=== PATIENT | male | born 1950 | race Caucasian/White ===

== ENCOUNTER 2023-03-29 10:12 | Inpatient (IN) ==
[2023-03-29] MEDS ORDERED: 0.9 % SODIUM CHLORIDE 1,000 ML IV ONE (10:18)
[2023-03-29 10:56] LABS: POC Calcium, Ionized 1.06 (1.16-1.32); POC Creatinine 0.8 (0.6-1.2); POC Potassium 3.9 (3.3-5.1)
[2023-03-29 11:42] LABS: ALT/SGPT 22 U/L (<40); AST/SGOT 36 U/L (<40); Albumin 4.2 gm/dL (3.2-5.2); Alkaline Phosphatase 69 U/L (39-117); Bilirubin,Direct < 0.2 mg/dL (0-0.3); Bilirubin,Total 0.3 mg/dL (0.1-1.0); Globulin 2.7 gm/dL (2.2-3.7)
[2023-03-29 12:04] LABS: Basophils # (Auto) 0.03 K/mcL (0.00-0.30); Basophils % (Auto) 0.6 % (0.0-2.0); Eosinophils # (Auto) 0.02 K/mcL (0.00-0.70); Eosinophils % (Auto) 0.4 % (0.0-7.0); Hematocrit 41.6 % (40.1-51.0); Hemoglobin 14.6 g/dL (13.7-17.5); Lymphocytes # (Auto) 1.01 K/mcL (1.50-4.80); Lymphocytes % (Auto) 21.5 % (15.5-49.0); Mean Cell Volume 96.3 fL (80.0-100.0); Mean Corpuscular HGB Conc 35.1 g/dL (31.0-36.0); Mean Platelet Volume 9.2 fL (8.8-12.5); Neutrophils % (Auto) 60.3 % (38.0-78.0); Platelet Count 146 K/mcL (140-440); RBC 4.32 M/mcL (4.63-6.08); Red Cell Distribution Width 12.4 % (11.5-14.5); WBC 4.7 K/mcL (4.5-11.0)
[2023-03-29] MEDS ORDERED: morphine 4 MG/ML VIAL IV PRN (13:19)
[2023-03-29] MEDS ORDERED: ONDANSETRON 4 MG/2 ML VIAL IV PRN ×2 (13:19→14:54)
[2023-03-29 13:52] LABS: Appearance,Urine CLEAR (Clear); Bilirubin,Urine Negative (Negative); Color,Urine YELLOW; Culture Indicated,Urine No; Glucose,Urine (UA) Negative (Negative); Ketones,Urine 20 mg/dL (Negative); Leukocyte Esterase,Urine Negative /uL (Negative); Mucus,Urine FEW /hpf; Nitrate,Urine Negative (Negative); Protein,Urine 100 mg/dL (Negative); Specific Gravity,Urine 1.012 (1.000-1.035); Urine Blood 0.03 mg/dL (Negative); Urine RBC 13 /hpf (0-3); Urine Squamous Epithelial Cell 0 /hpf (0-4); Urine WBC 1 /hpf (0-4); Urobilinogen,Urine Negative
[2023-03-29] MEDS ORDERED: ACETAMINOPHEN 325 MG TABLET PO PRN (14:54)
[2023-03-29] MEDS ORDERED: BISACODYL 10 MG SUPP.RECT PR PRN (14:54)
[2023-03-29] MEDS ORDERED: MAGNESIUM HYDROXIDE 30 ML ORAL.SUSP PO PRN (14:54)
[2023-03-29] MEDS: 0.9 % SODIUM CHLORIDE 10 ML SYRINGE IV SCH ×2 (14:57→20:45)
[2023-03-29] MEDS: DEXTROSE 5%-LR 1,000 ML IV SCH (18:11)
[2023-03-29] MEDS: HYDROmorphone 0.5 MG/0.5 ML SYRINGE IV PRN (18:13)
[2023-03-29] MEDS: DOCUSATE SODIUM 100 MG CAPSULE PO SCH (20:17)
[2023-03-29] MEDS: SENNOSIDES 1 TABLET PO SCH (20:17)
[2023-03-29] MEDS: traZODone HCL 50 MG TABLET PO PRN (20:18)
[2023-03-29] MEDS: oxyCODONE IR 5 MG TABLET PO PRN (20:19)
[2023-03-29] MEDS: FAMOTIDINE/PF 20 MG/2 ML VIAL IV SCH (20:42)
[2023-03-30] MEDS: DEXTROSE 5%-LR 1,000 ML IV SCH ×2 (02:40→10:28)
[2023-03-30] MEDS: 0.9 % SODIUM CHLORIDE 10 ML SYRINGE IV SCH ×3 (04:06→23:21)
[2023-03-30] MEDS ORDERED: SCOPOLAMINE 1 PATCH PATCH TOPICAL PRN (05:00)
[2023-03-30] MEDS ORDERED: IPRATROPIUM/ALBUTEROL 3 ML AMPUL.NEB NEB PRN ×2 (05:00→13:27)
[2023-03-30 07:52] LABS: Basophils # (Auto) 0.03 K/mcL (0.00-0.30); Basophils % (Auto) 0.7 % (0.0-2.0); Eosinophils # (Auto) 0.17 K/mcL (0.00-0.70); Hemoglobin 13.6 g/dL (13.7-17.5); Lymphocytes # (Auto) 1.06 K/mcL (1.50-4.80); Lymphocytes % (Auto) 25.2 % (15.5-49.0); Mean Cell Volume 98.3 fL (80.0-100.0); Mean Platelet Volume 9.5 fL (8.8-12.5); Monocytes # (Auto) 0.54 K/mcL (0.10-0.90); Monocytes % (Auto) 12.8 % (1.0-12.0); Neutrophils % (Auto) 57.1 % (38.0-78.0); Platelet Count 124 K/mcL (140-440); RBC 4.07 M/mcL (4.63-6.08); Red Cell Distribution Width 12.5 % (11.5-14.5); WBC 4.2 K/mcL (4.5-11.0)
[2023-03-30 08:01] LABS: ALT/SGPT 18 U/L (<40); AST/SGOT 26 U/L (<40); Albumin 3.7 gm/dL (3.2-5.2); Albumin/Globulin Ratio 1.5 (1.0-2.3); Alkaline Phosphatase 55 U/L (39-117); Bilirubin,Total 0.3 mg/dL (0.1-1.0); Blood Urea Nitrogen 8 mg/dL (8-23); Calcium 8.6 mg/dL (8.6-10.4); Carbon Dioxide 24 mmol/L (22-30); Chloride 98 mmol/L (96-108); Globulin 2.4 gm/dL (2.2-3.7); Glomerular Filtration Rate 93; Glucose 111 mg/dL (70-105)
[2023-03-30] MEDS: FAMOTIDINE/PF 20 MG/2 ML VIAL IV SCH ×2 (08:41→21:32)
[2023-03-30] MEDS: DOCUSATE SODIUM 100 MG CAPSULE PO SCH ×2 (08:41→23:21)
[2023-03-30] MEDS ORDERED: fentaNYL 100 MCG/2 ML VIAL IV ONE (12:02)
[2023-03-30] MEDS ORDERED: PROPOFOL 200 MG/20 ML VIAL IV ONE ×2 (12:02→13:40)
[2023-03-30] MEDS ORDERED: ROCURONIUM 10 MG/ML ML IV ONE (12:02)
[2023-03-30] MEDS ORDERED: ONDANSETRON 4 MG/2 ML VIAL ONE (12:04)
[2023-03-30] MEDS ORDERED: VANCOMYCIN 1,000 MG in 0.9 % SODIUM CHLORIDE 250 ML IV SCH (13:00)
[2023-03-30] MEDS ORDERED: HYDROmorphone 0.5 MG/0.5 ML SYRINGE IV PRN (13:27)
[2023-03-30] MEDS ORDERED: fentaNYL 100 MCG/2 ML VIAL IV PRN (13:27)
[2023-03-30] MEDS ORDERED: LABETALOL 5 MG/ML ML IV PRN (13:27)
[2023-03-30] MEDS ORDERED: SUGAMMADEX SODIUM 200 MG/2 ML VIAL IV ONE (13:37)
[2023-03-30] MEDS ORDERED: BENZOCAINE/MENTHOL 1 LOZENGE PO PRN (13:45)
[2023-03-30] MEDS ORDERED: morphine 4 MG/ML VIAL IV PRN (13:45)
[2023-03-30] MEDS ORDERED: HYDROcodone/APAP 5/325MG TABLET PO PRN (13:45)
[2023-03-30] MEDS ORDERED: BISACODYL 10 MG SUPP.RECT PR PRN (13:45)
[2023-03-30] MEDS ORDERED: POLYETHYLENE GLYCOL 3350 17 GM PACKET PO PRN (13:45)
[2023-03-30] MEDS ORDERED: ONDANSETRON 4 MG ODT TABLET SL PRN (13:45)
[2023-03-30] MEDS ORDERED: FLEETS ADULT ENEMA PR PRN (13:45)
[2023-03-30] MEDS ORDERED: MAGNESIUM HYDROXIDE 30 ML ORAL.SUSP PO PRN (13:45)
[2023-03-30] MEDS: HYDROmorphone 0.5 MG/0.5 ML SYRINGE IV PRN (15:10)
[2023-03-30] MEDS ORDERED: SENNOSIDES 1 TABLET PO SCH (21:00)
[2023-03-30] MEDS ORDERED: ASPIRIN 325 MG ENTERIC COATED TABLET PO SCH (21:00)
[2023-03-30] MEDS ORDERED: DOCUSATE SODIUM 100 MG CAPSULE PO SCH (21:00)
[2023-03-30] MEDS: OXYBUTYNIN CHLORIDE 5 MG TABLET PO SCH (21:31)
[2023-03-30] MEDS: SENNOSIDES 1 TABLET PO SCH (23:21)
[2023-03-31] MEDS: oxyCODONE IR 5 MG TABLET PO PRN ×2 (00:40→21:03)
[2023-03-31] MEDS: DEXTROSE 5%-LR 1,000 ML IV SCH ×2 (00:41→13:07)
[2023-03-31] MEDS: 0.9 % SODIUM CHLORIDE 10 ML SYRINGE IV SCH ×3 (05:59→20:42)
[2023-03-31 06:48] LABS: Basophils # (Auto) 0.03 K/mcL (0.00-0.30); Basophils % (Auto) 0.7 % (0.0-2.0); Eosinophils # (Auto) 0.11 K/mcL (0.00-0.70); Eosinophils % (Auto) 2.4 % (0.0-7.0); Hematocrit 36.8 % (40.1-51.0); Hemoglobin 12.6 g/dL (13.7-17.5); Lymphocytes # (Auto) 1.21 K/mcL (1.50-4.80); Lymphocytes % (Auto) 26.5 % (15.5-49.0); Mean Cell Volume 98.1 fL (80.0-100.0); Mean Corpuscular HGB Conc 34.2 g/dL (31.0-36.0); Mean Platelet Volume 9.7 fL (8.8-12.5); Monocytes # (Auto) 0.49 K/mcL (0.10-0.90); Monocytes % (Auto) 10.7 % (1.0-12.0); Neutrophils % (Auto) 59.5 % (38.0-78.0); Platelet Count 118 K/mcL (140-440); RBC 3.75 M/mcL (4.63-6.08); Red Cell Distribution Width 12.5 % (11.5-14.5); WBC 4.6 K/mcL (4.5-11.0)
[2023-03-31 07:13] LABS: ALT/SGPT 15 U/L (<40); AST/SGOT 26 U/L (<40); Albumin 2.9 gm/dL (3.2-5.2); Albumin/Globulin Ratio 1.1 (1.0-2.3); Alkaline Phosphatase 52 U/L (39-117); Bilirubin,Total 0.2 mg/dL (0.1-1.0); Blood Urea Nitrogen 7 mg/dL (8-23); Calcium 8.1 mg/dL (8.6-10.4); Carbon Dioxide 23 mmol/L (22-30); Chloride 101 mmol/L (96-108); Globulin 2.6 gm/dL (2.2-3.7); Glomerular Filtration Rate 99; Glucose 123 mg/dL (70-105)
[2023-03-31] MEDS: DONEPEZIL 10 MG TABLET PO SCH (08:29)
[2023-03-31] MEDS: OXYBUTYNIN CHLORIDE 5 MG TABLET PO SCH ×2 (08:29→21:04)
[2023-03-31] MEDS: FAMOTIDINE/PF 20 MG/2 ML VIAL IV SCH ×2 (08:29→21:07)
[2023-03-31] MEDS: DOCUSATE SODIUM 100 MG CAPSULE PO SCH ×2 (08:29→20:42)
[2023-03-31] MEDS ORDERED: POTASSIUM CHLORIDE 20 MEQ TABLET PO ONE (10:08)
[2023-03-31] MEDS: ENOXAPARIN 40 MG/0.4 ML SYRINGE SQ SCH (17:28)
[2023-03-31] MEDS: POTASSIUM CHLORIDE 20 MEQ TABLET PO SCH (17:28)
[2023-03-31] MEDS: METHOCARBAMOL 750 MG TABLET PO PRN (17:45)
[2023-03-31] MEDS: SENNOSIDES 1 TABLET PO SCH (20:42)
[2023-03-31] MEDS: traZODone HCL 50 MG TABLET PO PRN (21:04)
[2023-04-01] MEDS: 0.9 % SODIUM CHLORIDE 10 ML SYRINGE IV SCH ×3 (04:52→20:20)
[2023-04-01] MEDS: DEXTROSE 5%-LR 1,000 ML IV SCH (04:54)
[2023-04-01] MEDS: DONEPEZIL 10 MG TABLET PO SCH (08:34)
[2023-04-01] MEDS: oxyCODONE IR 5 MG TABLET PO PRN ×2 (08:34→17:47)
[2023-04-01] MEDS: METHOCARBAMOL 750 MG TABLET PO PRN ×2 (08:34→17:47)
[2023-04-01] MEDS: OXYBUTYNIN CHLORIDE 5 MG TABLET PO SCH ×2 (08:35→20:20)
[2023-04-01] MEDS: DOCUSATE SODIUM 100 MG CAPSULE PO SCH ×2 (08:35→20:20)
[2023-04-01] MEDS: POTASSIUM CHLORIDE 20 MEQ TABLET PO SCH ×2 (08:36→17:47)
[2023-04-01] MEDS: ENOXAPARIN 40 MG/0.4 ML SYRINGE SQ SCH (08:36)
[2023-04-01 09:36] LABS: Basophils # (Auto) 0.02 K/mcL (0.00-0.30); Basophils % (Auto) 0.5 % (0.0-2.0); Eosinophils # (Auto) 0.15 K/mcL (0.00-0.70); Eosinophils % (Auto) 3.5 % (0.0-7.0); Hematocrit 37.8 % (40.1-51.0); Hemoglobin 12.1 g/dL (13.7-17.5); Lymphocytes # (Auto) 1.46 K/mcL (1.50-4.80); Mean Cell Volume 105.3 fL (80.0-100.0); Mean Platelet Volume 9.5 fL (8.8-12.5); Monocytes # (Auto) 0.45 K/mcL (0.10-0.90); Monocytes % (Auto) 10.5 % (1.0-12.0); Neutrophils % (Auto) 51.3 % (38.0-78.0); Platelet Count 119 K/mcL (140-440); RBC 3.59 M/mcL (4.63-6.08); Red Cell Distribution Width 12.5 % (11.5-14.5); WBC 4.3 K/mcL (4.5-11.0)
[2023-04-01 10:11] LABS: ALT/SGPT 13 U/L (<40); AST/SGOT 23 U/L (<40); Albumin/Globulin Ratio 1.3 (1.0-2.3); Alkaline Phosphatase 51 U/L (39-117); Bilirubin,Total 0.3 mg/dL (0.1-1.0); Blood Urea Nitrogen 6 mg/dL (8-23); Calcium 8.3 mg/dL (8.6-10.4); Carbon Dioxide 26 mmol/L (22-30); Chloride 101 mmol/L (96-108); Globulin 2.4 gm/dL (2.2-3.7); Glomerular Filtration Rate 99; Glucose 98 mg/dL (70-105)
[2023-04-01] MEDS: FAMOTIDINE/PF 20 MG/2 ML VIAL IV SCH (10:27)
[2023-04-01] MEDS: SENNOSIDES 1 TABLET PO SCH (20:20)
[2023-04-01] MEDS: FAMOTIDINE 20 MG TABLET PO SCH (20:20)
[2023-04-01] MEDS: traZODone HCL 50 MG TABLET PO PRN (20:20)
[2023-04-02] MEDS: METHOCARBAMOL 750 MG TABLET PO PRN ×3 (02:55→21:53)
[2023-04-02] MEDS: oxyCODONE IR 5 MG TABLET PO PRN ×3 (02:55→21:55)
[2023-04-02] MEDS: 0.9 % SODIUM CHLORIDE 10 ML SYRINGE IV SCH ×3 (05:59→21:54)
[2023-04-02 07:02] LABS: Basophils # (Auto) 0.03 K/mcL (0.00-0.30); Basophils % (Auto) 0.6 % (0.0-2.0); Eosinophils # (Auto) 0.14 K/mcL (0.00-0.70); Eosinophils % (Auto) 2.8 % (0.0-7.0); Hemoglobin 11.9 g/dL (13.7-17.5); Lymphocytes # (Auto) 1.18 K/mcL (1.50-4.80); Lymphocytes % (Auto) 23.7 % (15.5-49.0); Mean Cell Volume 98.6 fL (80.0-100.0); Mean Platelet Volume 9.6 fL (8.8-12.5); Monocytes # (Auto) 0.51 K/mcL (0.10-0.90); Monocytes % (Auto) 10.2 % (1.0-12.0); Neutrophils % (Auto) 62.5 % (38.0-78.0); Platelet Count 145 K/mcL (140-440); RBC 3.55 M/mcL (4.63-6.08); Red Cell Distribution Width 12.1 % (11.5-14.5)
[2023-04-02 07:37] LABS: ALT/SGPT 13 U/L (<40); AST/SGOT 22 U/L (<40); Albumin 3.3 gm/dL (3.2-5.2); Albumin/Globulin Ratio 1.4 (1.0-2.3); Alkaline Phosphatase 54 U/L (39-117); Bilirubin,Total 0.4 mg/dL (0.1-1.0); Blood Urea Nitrogen 8 mg/dL (8-23); Calcium 8.4 mg/dL (8.6-10.4); Carbon Dioxide 23 mmol/L (22-30); Chloride 98 mmol/L (96-108); Globulin 2.4 gm/dL (2.2-3.7); Glomerular Filtration Rate 99; Glucose 96 mg/dL (70-105)
[2023-04-02] MEDS: POTASSIUM CHLORIDE 20 MEQ TABLET PO SCH ×2 (07:54→18:02)
[2023-04-02] MEDS: DONEPEZIL 10 MG TABLET PO SCH (08:53)
[2023-04-02] MEDS: DOCUSATE SODIUM 100 MG CAPSULE PO SCH ×2 (08:53→21:53)
[2023-04-02] MEDS: ENOXAPARIN 40 MG/0.4 ML SYRINGE SQ SCH (08:54)
[2023-04-02] MEDS: OXYBUTYNIN CHLORIDE 5 MG TABLET PO SCH ×2 (08:54→21:54)
[2023-04-02] MEDS: FAMOTIDINE 20 MG TABLET PO SCH ×2 (08:54→21:54)
[2023-04-02] MEDS: SENNOSIDES 1 TABLET PO SCH (21:54)
[2023-04-02] MEDS: traZODone HCL 50 MG TABLET PO PRN (21:54)
[2023-04-03] MEDS: oxyCODONE IR 5 MG TABLET PO PRN ×2 (03:54→20:16)
[2023-04-03] MEDS: METHOCARBAMOL 750 MG TABLET PO PRN ×2 (03:55→20:15)
[2023-04-03] MEDS: 0.9 % SODIUM CHLORIDE 10 ML SYRINGE IV SCH ×3 (04:00→20:15)
[2023-04-03 07:45] LABS: Basophils # (Auto) 0.03 K/mcL (0.00-0.30); Basophils % (Auto) 0.6 % (0.0-2.0); Eosinophils # (Auto) 0.17 K/mcL (0.00-0.70); Eosinophils % (Auto) 3.1 % (0.0-7.0); Hematocrit 34.5 % (40.1-51.0); Hemoglobin 11.7 g/dL (13.7-17.5); Lymphocytes # (Auto) 1.41 K/mcL (1.50-4.80); Lymphocytes % (Auto) 26.1 % (15.5-49.0); Mean Cell Volume 96.9 fL (80.0-100.0); Mean Corpuscular HGB Conc 33.9 g/dL (31.0-36.0); Mean Platelet Volume 9.4 fL (8.8-12.5); Monocytes # (Auto) 0.66 K/mcL (0.10-0.90); Monocytes % (Auto) 12.2 % (1.0-12.0); Neutrophils % (Auto) 57.6 % (38.0-78.0); Platelet Count 170 K/mcL (140-440); RBC 3.56 M/mcL (4.63-6.08); Red Cell Distribution Width 12.1 % (11.5-14.5); WBC 5.4 K/mcL (4.5-11.0)
[2023-04-03 08:30] LABS: ALT/SGPT 14 U/L (<40); AST/SGOT 20 U/L (<40); Albumin 3.4 gm/dL (3.2-5.2); Albumin/Globulin Ratio 1.4 (1.0-2.3); Alkaline Phosphatase 58 U/L (39-117); Bilirubin,Total 0.4 mg/dL (0.1-1.0); Blood Urea Nitrogen 11 mg/dL (8-23); Calcium 8.8 mg/dL (8.6-10.4); Carbon Dioxide 24 mmol/L (22-30); Chloride 99 mmol/L (96-108); Globulin 2.5 gm/dL (2.2-3.7); Glomerular Filtration Rate 88; Glucose 89 mg/dL (70-105)
[2023-04-03] MEDS: ENOXAPARIN 40 MG/0.4 ML SYRINGE SQ SCH (08:42)
[2023-04-03] MEDS: DOCUSATE SODIUM 100 MG CAPSULE PO SCH ×2 (08:42→20:09)
[2023-04-03] MEDS: DONEPEZIL 10 MG TABLET PO SCH (08:42)
[2023-04-03] MEDS: FAMOTIDINE 20 MG TABLET PO SCH ×2 (08:42→20:15)
[2023-04-03] MEDS: POTASSIUM CHLORIDE 20 MEQ TABLET PO SCH ×2 (08:42→16:56)
[2023-04-03] MEDS: OXYBUTYNIN CHLORIDE 5 MG TABLET PO SCH ×2 (08:42→20:15)
[2023-04-03] MEDS: SENNOSIDES 1 TABLET PO SCH (20:09)
[2023-04-03] MEDS: traZODone HCL 50 MG TABLET PO PRN (20:15)
[2023-04-04] MEDS: METHOCARBAMOL 750 MG TABLET PO PRN ×2 (02:32→08:38)
[2023-04-04] MEDS: oxyCODONE IR 5 MG TABLET PO PRN ×2 (02:32→08:38)
[2023-04-04] MEDS: 0.9 % SODIUM CHLORIDE 10 ML SYRINGE IV SCH (05:02)
[2023-04-04 07:41] LABS: Basophils # (Auto) 0.03 K/mcL (0.00-0.30); Basophils % (Auto) 0.5 % (0.0-2.0); Eosinophils # (Auto) 0.14 K/mcL (0.00-0.70); Eosinophils % (Auto) 2.4 % (0.0-7.0); Hematocrit 37.3 % (40.1-51.0); Hemoglobin 12.6 g/dL (13.7-17.5); Lymphocytes # (Auto) 1.35 K/mcL (1.50-4.80); Lymphocytes % (Auto) 22.8 % (15.5-49.0); Mean Cell Volume 97.6 fL (80.0-100.0); Mean Corpuscular HGB Conc 33.8 g/dL (31.0-36.0); Mean Platelet Volume 9.2 fL (8.8-12.5); Monocytes # (Auto) 0.71 K/mcL (0.10-0.90); Platelet Count 213 K/mcL (140-440); RBC 3.82 M/mcL (4.63-6.08); WBC 5.9 K/mcL (4.5-11.0)
[2023-04-04] MEDS: DONEPEZIL 10 MG TABLET PO SCH (08:35)
[2023-04-04] MEDS: FAMOTIDINE 20 MG TABLET PO SCH (08:35)
[2023-04-04] MEDS: POTASSIUM CHLORIDE 20 MEQ TABLET PO SCH (08:36)
[2023-04-04] MEDS: ENOXAPARIN 40 MG/0.4 ML SYRINGE SQ SCH (08:36)
[2023-04-04] MEDS: OXYBUTYNIN CHLORIDE 5 MG TABLET PO SCH (08:36)
[2023-04-04] MEDS: DOCUSATE SODIUM 100 MG CAPSULE PO SCH (08:36)
[2023-04-04 10:17] LABS: ALT/SGPT 20 U/L (<40); AST/SGOT 26 U/L (<40); Albumin 3.7 gm/dL (3.2-5.2); Albumin/Globulin Ratio 1.3 (1.0-2.3); Alkaline Phosphatase 63 U/L (39-117); Bilirubin,Total 0.5 mg/dL (0.1-1.0); Blood Urea Nitrogen 11 mg/dL (8-23); Calcium 8.9 mg/dL (8.6-10.4); Carbon Dioxide 18 mmol/L (22-30); Chloride 99 mmol/L (96-108); Globulin 2.8 gm/dL (2.2-3.7); Glomerular Filtration Rate 99; Glucose 92 mg/dL (70-105)
== END 2023-04-04 12:30 | DRG 480 ==
LOC: ED 10:12 → MEDSUR 14:43
PROVIDERS: ADMIT Internal Medicine; ATTEND Internal Medicine